=== PATIENT | male | born 1965 | race Two or more races ===

== ENCOUNTER 2018-01-04 12:42 | Emergency (ER) | payer SELFPAY ==
[2018-01-04 12:49] VITALS: TEMP 98; BMI 34.7
--- NOTE | 2018-01-04 13:06 | PDOC ---
Attending Attestation - Resident Resident Name: GraceLandon - ED Attending Attestation I have performed the following: I have examined & evaluated the patient, The case was reviewed & discussed with the resident, I agree w/resident's findings & plan, Exceptions are as noted - HPI HPI: 01/04/18 13:05 52y M hx of htn, seziures, cavernous hemagiomas persents with posterior neck pain that was sudden onset that started while he was driving. pt endorses feeling alittle pain for 5 min in his neck yesterday that resolved spontaneously. Pt denies any associated n/v, numbness/tingling/weakness, vision changes, dysarthria on exam pt has focal tenderness the L cervical pasapsinal muscles, reproducible with neck rotation but flexing/extending his neck without difficulty, no signs of meningismus. neuro exam intact with EOMI, pt well appearing in general, smilking/making jokes, suspect possible muscular cause/spasm, consider posible vascular cause of his pain including aislinn/carotid disesction, will give pt tylenol will ck ct head, will ck labs will reassess - Physicial Exam PE: 01/08/18 07:47 see above - Medical Decision Making 01/04/18 15:40 pt feeling significntly improved able to range his neck without complaint neg bruzinsky/kernigs repeat BP is improved suspect muscle strain will treat supportively with tylenol will hav ept fu with pmd fur further mangement of his hypertension and need for med changes will defer changing it here as pts bp may be secondary his discomfort
[2018-01-04] MEDS ORDERED: ACETAMINOPHEN 1000 MG/100 ML VIAL (NON FORMULARY) IVPB ONE (13:27)
[2018-01-04] MEDS ORDERED: ACETAMINOPHEN 500 MG TABLET (FP) PO ONE (13:28)
[2018-01-04 13:35] LABS: BASO % 0.8 % (0-2.0); EOS % 1.4 % (0-4.5); HEMATOCRIT 42.3 % (35.4-49); HEMOGLOBIN 13.9 GM/dL (11.7-16.9); LYMPH % 33.4 % (8-40); MCH 27.2 pg (25.7-33.7); MCHC 32.8 g/dl (32.0-35.9); MEAN CELL VOLUME 82.8 fl (80-96); MEAN PLT VOLUME 9.8 fl (7.5-11.1); MONO % 5.8 % (3.8-10.2); NEUT % 58.6 % (42.8-82.8); PLATELET COUNT 184 K/MM3 (134-434); RDW 15.9 % (11.9-15.9); WHITE BLOOD COUNT 9.1 K/mm3 (4.0-10.0)
[2018-01-04 13:39] LABS: URINE APPEARANCE CLEAR; URINE BILIRUBIN NEGATIVE (<2.0 mg/dL); URINE COLOR LTYELLOW; URINE GLUCOSE (UA) NEGATIVE (NEGATIVE); URINE KETONE NEGATIVE (NEGATIVE); URINE LEUK ESTERASE NEGATIVE (NEGATIVE); URINE NITRITE NEGATIVE (NEGATIVE); URINE PROTEIN NEGATIVE (NEGATIVE); URINE UROBILINOGEN NEGATIVE mg/dL (0.2-1.0)
--- NOTE | 2018-01-04 13:46 | PDOC ---
History of Present Illness - General Chief Complaint: Headache Stated Complaint: HEAD PAIN Time Seen by Provider: 01/04/18 12:57 - History of Present Illness Initial Comments: 01/04/18 13:31 52 year old male with a hx of HTN, seizures, and cavernous hemangioma presents for 1 hour hx of sudden onset, 10/10 posterior headache that occurred while he was driving. No inciting factors were noted. He reports that he has some dizziness and lightheadedness. States that it hurts when he moves his head. He additionally reports a cough earlier in the day. Patient says he took 2 aspirin when the headache started, but the pain got worse. States that he had a very mild headache in a similar location yesterday, which went away within 5 minutes. Denies fevers, chills, chest pain, shortness of breath, nausea or vomiting. Denies changes to his vision. Patient reports being on hydrochlorothiazide and taking it this morning. Allergies: penicillin (unknown reaction) Smoke: none Alcohol: none Drugs: none PCP: none [employer]: Dr. Hilliard Past History - Past Medical History Allergies/Adverse Reactions: Allergies Allergy/AdvReac Type Severity Reaction Status Date / Time milk Allergy Verified 01/04/18 12:43 Milk Containing Products Allergy Verified 01/04/18 12:43 Penicillins Allergy Verified 01/04/18 12:43 morphine AdvReac Low Blood Verified 01/04/18 12:43 Pressure Home Medications: Ambulatory Orders Topiramate 25 mg PO BID 01/24/15 Hydrochlorothiazide [Hctz -] 25 mg PO DAILY #30 tablet 01/26/15 COPD: No HTN: Yes Seizures: Yes Other medical history: HEMINGIOMAS - Immunization History Immunization Up to Date: Yes - Suicide/Smoking/Psychosocial Hx Smoking Status: No Smoking History: Never smoked Have you smoked in the past 12 months: No Number of Cigarettes Smoked Daily: 0 Information on smoking cessation initiated: No Hx Alcohol Use: Yes ("once in a [place]") Drug/Substance Use Hx: No Substance Use Type: None Hx Substance Use Treatment: No Neuro Specific PMHX - Complaint Specific PMHX Herniated Disk: No Laminectomy: No Multiple Sclerosis: No TIA: No Review of Systems - Review of Systems Able to Perform ROS?: Yes Constitutional: No: Chills, Fever, Weakness HEENTM: No: Blurred Vision Respiratory: Yes: Cough. No: Shortness of Breath Cardiac (ROS): No: Chest Pain, Chest Tightness ABD/GI: No: Diarrhea, Nausea, Vomiting Musculoskeletal: Yes: Muscle Pain Integumentary: Yes: Lesions Neurological: Yes: Headache. No: Tingling *Physical Exam - Vital Signs Last Vital Signs Temp Pulse Resp BP Pulse Ox 98.0 F 92 H 18 194/102 100 01/04/18 12:44 01/04/18 12:44 01/04/18 12:44 01/04/18 12:44 01/04/18 12:44 - Physical Exam Comments: 01/04/18 13:46 GENERAL: A&Ox3, no acute distress EYES: PERRLA, EOMI ENT: Moist mucus membranes NECK: No JVD, pain on palpation of posterior superior neck and back of the head LUNGS: CTA, no wheezes HEART: RRR, no murmurs ABDOMEN: Soft, nontender, BS present MUSCULOSKELETAL: No CVA Tenderness EXTREMITIES: 2+ pulses, no edema, multiple, scratched comedonal lesions noted on bilateral extremities NEUROLOGICAL: Cranial nerves II-XII intact. ED Treatment Course - LABORATORY CBC & Chemistry Diagram: 01/04/18 13:15 01/04/18 13:15 - RADIOLOGY Radiology Studies Ordered: Category Date Time Status HEAD CT WITHOUT CONTRAST [CT] Stat CT Scan 01/04/18 13:10 Ordered Medical Decision Making - Medical Decision Making 01/04/18 14:05 52 year old male hx of HTN, seizures, cavernous hemangioma presents for sudden onset headache. -will do CT head no contrast to r/o bleed -CBC, CMP, INR, UA -will give 1000mg tylenol for pain -will re-evaluate BP 01/04/18 14:25 -CT negative for any intracranial pathology -labs wnl 01/04/18 15:27 -patient feels better, with his pain reduced to a 3/10 -given 25mg HCTZ, blood pressure dropped to 150/100 -patient counseled on obtaining primary care physician -will d/c home with close followup *DC/Admit/Observation/Transfer Diagnosis at time of Disposition: Headache, Hypertension - Discharge Dispostion Disposition: HOME Condition at time of disposition: Stable Decision to Admit order: No - Referrals - Patient Instructions Additional Instructions: You were seen in the hospital for headache and high blood pressure. Your CAT scan of the head was negative for any acute disease You need to have a primary care physician to closely monitor your blood pressure and maintain your medications Please make an appointment at our clinic with any of our physicians at [address] [place] [address] [address], [place] [address] ([phone]) Make an appointment for within 1 week of discharge Continue to take hydrochlorothiazide as you have now until you see your primary care physician. *If you experience severe headache, chest pain, fevers, chills, nausea, vomiting , diarrhea, please return to the emergency room immediately - Post Discharge Activity
[2018-01-04 13:55] LABS: INR 1.03 (0.82-1.09); PROTHROMBIN TIME (PATIENT) 11.6 SEC (9.7-13.0)
[2018-01-04 14:06] LABS: ALBUMIN 3.8 g/dl (3.4-5.0); ALK PHOS 106 U/L (45-117); ANION GAP 8 (8-16); BILIRUBIN,TOTAL 0.5 mg/dL (0.2-1.0); BLOOD UREA NITROGEN 16 mg/dL (7-18); CALCIUM 9.2 mg/dL (8.5-10.1); CHLORIDE 99 mmol/L (98-107); CO2 30 mmol/L (21-32); CREATININE 1.2 mg/dL (0.7-1.3); GLUCOSE,RANDOM 131 mg/dL (74-106); POTASSIUM 3.6 mmol/L (3.5-5.1); SGOT/AST 43 U/L (15-37); SGPT/ALT 71 U/L (12-78); SODIUM 137 mmol/L (136-145); TOT PROT 7.7 g/dl (6.4-8.2)
[2018-01-04] MEDS ORDERED: ACETAMINOPHEN INJECTION 100 ML IVPB ONE (14:34)
[2018-01-04] MEDS ORDERED: HYDROCHLOROTHIAZIDE 25 MG TABLET (FP) PO ONE (14:39)
[2018-01-04] MEDS ORDERED: HYDROCHLOROTHIAZIDE 25 MG TABLET (FP) ONE (14:47)
[2018-01-04] MEDS ORDERED: BACITRACIN 0.9 GM PACKET ONE (15:34)
[2018-01-04 18:09] VITALS: BP 173/108; PULSE 84
== END 2018-01-04 15:35 | disposition home or self-care (01) ==
LOC: JER 12:42
PROC: 3E033NZ Introduction of Analgesics, Hypnotics, Sedatives into Peripheral Vein, Percutaneous Approach (ICD-10-PCS; principal; 2018-01-04)
DX: R51 Headache (principal); I10 Essential (primary) hypertension; G40.909 Epilepsy, unspecified, not intractable, without status epilepticus; D18.09 Hemangioma of other sites
CPT/HCPCS: 36415; 70450-TC; 80053; 81003; 85025; 85610; 99283-25; J0131

== ENCOUNTER 2021-09-19 12:42 | Emergency (ER) | payer SELFPAY ==
[2021-09-19 13:01] VITALS: BP 164/97; PULSE 67; TEMP 98; BMI 33.2
[2021-09-19] MEDS ORDERED: traMADol HCL 50 MG TABLET PO ONE (13:41)
[2021-09-19] MEDS ORDERED: traMADol HCL 50 MG TABLET ONE (13:44)
== END 2021-09-19 14:26 | disposition home or self-care (01) ==
LOC: JERFT 12:42
DX: S50.02XA Contusion of left elbow, initial encounter (principal); W10.9XXA Fall (on) (from) unspecified stairs and steps, initial encounter
CPT/HCPCS: 73070-TC-LT-FY; 73610-TC-LT-FY; 73630-TC-LT; 99284-25